=== PATIENT | female | born 1990 | race Hispanic/Latino ===

== ENCOUNTER 2017-03-25 07:26 | Emergency (ER) | payer OTHER ==
[2017-03-25 07:31] VITALS: BP 127/72; PULSE 92; RESP 18; TEMP 98.3; O2SAT 98
[2017-03-25] MEDS ORDERED: Erythromycin 0.5% Ophth Oint 1 APPLIC/3.5 G OD ONE (08:29)
--- NOTE | 2017-03-25 08:34 | ED PDOC ---
HPI: Eye Injury/Pain Time Seen by Provider: 03/25/17 07:31 Chief Complaint (Nursing): Eye Problem Chief Complaint (Provider): Eye Problem History Per: Patient History/Exam Limitations: no limitations Onset/Duration Of Symptoms: Days (since last night, 03/24/2017.) Current Symptoms Are (Timing): Still Present Additional Complaint(s): 27 y/o female presents to the emergency department with a complaint of a right eye pain since last night, 03/24/2017. Associated with mild swelling of the upper eyelid. Patient states she was laying down last night and pain began every time she would blink although at first she thought it was an eyelash but is now concerned. Denies itchiness. Past Medical History Reviewed: Historical Data, Nursing Documentation, Vital Signs Vital Signs: Last Vital Signs Temp 98.3 F 03/25/17 07:30 Pulse 92 H 03/25/17 07:30 Resp 18 03/25/17 07:30 BP 127/72 03/25/17 07:30 Pulse Ox 98 03/25/17 07:30 - Medical History PMH: No Chronic Diseases - Surgical History Surgical History: No Surg Hx - Family History Family History: States: Unknown Family Hx - Social History Current smoker - smoking cessation education provided: No Alcohol: None Drugs: Denies - Immunization History Hx Tetanus Toxoid Vaccination: No Hx Influenza Vaccination: No Hx Pneumococcal Vaccination: No - Home Medications Home Medications: Ambulatory Orders Medication Instructions Recorded No Known Home Med 03/25/17 - Allergies Allergies/Adverse Reactions: Allergies Allergy/AdvReac Type Severity Reaction Status Date / Time No Known Allergies Allergy Verified 03/25/17 07:47 Review of Systems ROS Statement: Except As Marked, All Systems Reviewed And Found Negative Eyes: Positive for: Pain (Of the right eye with mild swelling of the upper eyelid). Negative for: Other (Itchiness) Physical Exam - Reviewed Nursing Documentation Reviewed: Yes Vital Signs Reviewed: Yes - Physical Exam Appears: Positive for: Non-toxic, No Acute Distress Head Exam: Positive for: ATRAUMATIC, NORMAL INSPECTION, NORMOCEPHALIC Eye Exam: Positive for: EOMI, PERRL, Other (Black specal appeared on the right eye that overlooks adjacent to pupil itself. With mild swelling of the upper eyelid. Unable to remove with cr swab.). Negative for: Normal appearance, Conjunctival injection Neurologic/Psych: Positive for: Alert, Oriented - ECG O2 Sat by Pulse Oximetry: 98 (RA) Pulse Ox Interpretation: Normal Medical Decision Making Medical Decision Making: Time: 07:31 Initial impression: Right eye pain Initial plan: --Examination of the right eye --Pending Director Global Strategic Publisher Sales Consult Time: 08:00 --Spoke to Dr. Micah Ayers opthalmologist [employer] solutions developer who advised to double patch the right eye with erythromycin ointment for the eye and have her see him at his [place] office at 10 am tomorrow. Time: : --Erythromycin 0.5% 1 applic Time: 08:35 Upon provider reevaluation patient is medically stable, and requires no further treatment in the ED at this time. Patient will be discharged home. Counseling was provided and all questions were answered regarding diagnosis and need for follow up with Dr. Micah Ayers MD at his [place] office in [place] tomorrow at 10 am. There is agreement to discharge plan. Return if symptoms persist or worsen. Clinical Impression: Foreign Body in eye pt will follow up given instructions for follow up pt agreeable patch for eye given as instructed by Dr Ayers Scribe Attestation: Documented by Aileen Mtz, acting as a scribe for Alana Hernandes MD. Provider Scribe Attestation: All medical record entries made by the Scribe were at my direction and personally dictated by me. I have reviewed the chart and agree that the record accurately reflects my personal performance of the history, physical exam, medical decision making, and the department course for this patient. I have also personally directed, reviewed, and agree with the discharge instructions and disposition. Disposition - Clinical Impression Clinical Impression: Foreign body in eye - Patient ED Disposition Is Patient to be Admitted: No Counseled Patient/Family Regarding: Diagnosis, Need For Followup - Disposition Referrals: Micah Ayers MD [Staff Provider] - Disposition: Routine/Home Disposition Time: 08:05 Condition: STABLE Additional Instructions: follow up with Dr Ayers [email or web address] at 10 am return to the ED with any worsening or concerning symptoms. use erythromycin ointment as prescribed Instructions: Eye Foreign Body (ED)
== END 2017-03-25 09:22 | disposition home or self-care (01) ==
LOC: H.ER 07:26
DX: H57.11 Ocular pain, right eye (principal)